=== PATIENT | female | born 1990 | race Caucasian/White ===

== ENCOUNTER → 2021-11-13 14:41 | Outpatient (CLI) | payer OTHER, SELFPAY ==
[2021-11-13 15:29] LABS: COVID19 -Nasal RAPID Negative (Negative)
== END ==
PROVIDERS: PCP Physician Assistant; Visit Provider Obstetrics & Gynecology
DX: Z01.812 Encounter for preprocedural laboratory examination (principal); Z20.822 Contact with and (suspected) exposure to COVID-19
CPT/HCPCS: 87635

== ENCOUNTER 2021-11-14 08:27 | Day surgery (SDC) | payer OTHER, SELFPAY ==
[2021-11-05 08:11] VITALS: BMI 44.3
[2021-11-14] VITALS (7 sets, daily range): BP systolic 115–145; BP diastolic 53–79; PULSE 61–77; RESP 12–16; TEMP 36.2; O2SAT 94–100; BMI 43.3
--- NOTE | 2021-11-14 | PATH_ITS ---
[facility] Accession Number: [id number] . 01 Material submitted: . endometrium - ENDOMETRIAL CURETTINGS . 01 Diagnosis: Endometrial Curettings: Portions of disordered proliferative endometrium; negative for glandular hyperplasia, cytologic atypia, or malignancy. Some endometrial fragments demonstrate prominent vessels, suggestive of polyp, if clinical and imaging studies are concordant. V 11/18/2021 1117 Local . 01 Electronically signed: . Kimberly Leung MD, Pathologist NPI- [id number] . 01 Gross description: . Received in formalin, labeled with the patient's name and endometrial curettings, and consists of multiple tsang to red-brown soft tissue fragments aggregating to 3.5 x 3.5 x 0.4 cm. The specimen is filtered into biopsy bags and submitted entirely in cassettes A1-A2. ([id number]) /[facility] 11/15/2021 1325 Local . 01 Pathologist provided ICD-10: N93.9 . 01 CPT . 334448 Performed at: 01 [facility] [address] [place] [address] [address], [place], [place] [id number] MD Caleb Ordaz MD Phone: [phone]
[2021-11-14] MEDS: LACTATED RINGERS 1,000 ML 100 ML IV (08:58)
--- NOTE | 2021-11-14 09:11 | PM.HP.1 ---
History of Present Illness History of Present Illness Date Patient Seen: 11/14/21 Time Patient Seen: 09:11 Chief complaint: SDC Narrative: Patient is a 31-year-old 0 with abnormal uterine bleeding here for a D&C hysteroscopy with polypectomy Patient History Medical History (Updated 09/18/21 @ 18:06 by Lillian Granados) Abnormal uterine bleeding (~2020) Depression (~2018) History of cold sores (~1988) Lichen planopilaris (~2020) Surgical History (Updated 09/18/21 @ 18:06 by Lillian Granados) History of dacryocystorhinostomy (~2016) History of dental surgery (~2008) Family & Social History Family History (Updated 09/18/21 @ 18:08 by Lillian Granados) Father History of heart disease Mother Mental health problem Grandfather Cancer Mesothelioma Grandmother History of heart disease Grandfather History of heart disease Grandmother History of heart disease Social History: household members none Tobacco & Substance use: Smoking Status Never smoker alcohol intake current alcohol intake frequency holiday/special occasion Substance Use Type does not use Meds Home Medications and Allergies Home Medications Medication Instructions Recorded Confirmed Type clobetasol 0.05 % topical gel 1 applic topical BID 09/03/21 11/05/21 History doxycycline monohydrate 100 mg 100 mg PO BID 09/03/21 11/05/21 History capsule Allergies Allergy/AdvReac Type Severity Reaction Status Date / Time No Known Drug Allergies Allergy Verified 11/14/21 08:46 Exam Vital Signs (past 8 hours): - 11/14/21 08:55 Temperature 97.1 F L Pulse Rate 67 Respiratory Rate 16 Blood Pressure 145/75 H Pulse Oximetry 100 Oxygen Delivery Method Room Air Oxygen Delivery Method Room Air Narrative Exam Narrative: HEENT: No thyromegaly, no anterior cervical or supraclavicular lymphadenopathy. Lungs:Clear to auscultation bilaterally, no wheezes. Cardiovascular: Regular rate and rhythm, no murmurs, rubs, or gallops. Abdomen: No scars. No hepatosplenomegaly. No masses palpable. External genitalia: Normal Vagina: Normal Cervix: Normal Bimanual exam: 7 Week size anteverted uterus. Mobile. Extremities: No edema Assessment & Plan Assessment & Plan narrative: Assessment: 31-year-old 0 with abnormal uterine bleeding and an endometrial polyp Plan: D&C hysteroscopy with polypectomy The risks, benefits, and alternatives to the procedure were explained to the patient. The risks including bleeding, infection, and uterine perforation. She understands these risks and agrees to proceed. A full par Q was held and consent form was signed. COVID-19 COVID-19 status: Negative Result date/Date tested (Pos, Neg/Pending): 11/13/21 Time Spent With Patient Time with patient: less than 30 minutes Critical Care time: I spent a total of [] minutes of critical care time on this patient's care today; this time is exclusive of procedural time.
--- NOTE | 2021-11-14 09:16 | PM.PREOP ---
Pre-operative Note COVID-19 COVID-19 status: Negative Result date/Date tested (Pos, Neg/Pending): 11/13/21 Criteria for continued procedure: Non-surgical alternatives not available or appropriate per current SOC Interval Note History & Physical reviewed/Exam performed by Physician: Yes Changes to H&P: No H&P completed within 30 days and has changed as indicated here:: 11/14/21
[2021-11-14] MEDS: ACETAMINOPHEN 325 MG TABLET 975 MG PO (09:59)
--- NOTE | 2021-11-14 10:52 | SUR.OPER ---
Lithotomy on padded OR bed, head on pillow, arms secured on padded arm boards at <90 degrees abduction. Legs secured in padded yellow fins stirrups. Patient voided in preop op area prior to entering OR.
[2021-11-14] MEDS: OXYCODONE IR 5 MG TABLET PO (11:39)
--- NOTE | 2021-11-14 11:44 | SUR.PHASEI ---
Pt A&Ox4, reports cramping as tolerable, denies any nausea, VSS and ready to transfer to phase 2. Report given to GABINO Rowley using SBAR with time allowed for questions. Will transfer care now.
--- NOTE | 2021-11-15 00:57 | PM.GYNOP.1 ---
Operative Date/Time/Diagnoses Date of procedure: 11/14/21 Time of procedure: 11:30 Pre-op diagnosis: Abnormal uterine bleeding Post-op diagnosis: same Procedure & Clinicians Procedure: Procedures Operation Date: 11/14/21 09:45 Actual Procedure Side Surgeon p D&C Hysteroscopy Venessa Alegre MD Indications: Abnormal uterine bleeding Endometrial polyp Surgeon: Venessa Alegre Anesthesia Type: General (LMA) Operative Notes Findings: 10 week size anteverted uterus Very thickened uterine lining throughout with abnormal looking vasculature and tissue Neither fallopian tube ostia could be observed Closure Type: not applicable Specimen(s): endometrial curettings Estimated blood loss (mL): 10 Blood products transfused: none Procedure in detail: After informed consent was obtained, the patient was taken to the operating room where she was placed in the dorsal supine position. After adequate LMA general anesthesia was achieved, she was placed in the dorsal lithotomy position, and prepped and draped in the usual sterile fashion. A time-out was performed. A bivalve speculum was placed into the vagina and the anterior lip of the cervix was grasped with a single-tooth tenaculum. The cervical os was sequentially dilated until the hysteroscope could pass easily into the endometrial cavity. Initial inspection with the hysteroscope revealed a large amount of tissue that appeared abnormal and thickened in the endometrial lining. The fallopian tube ostia could not be observed. The hysteroscope was removed. Polyp forceps were used to remove a large amount of tissue in the endocervical and endometrial canal. The hysteroscope again passed easily into the endometrial cavity. The fallopian tube ostia could still not be observed. There was still a large amount of abnormal appearing tissue in the endometrial canal. The hysteroscope was removed. Sharp curettage was performed yielding a large amount of endometrial curettings. The hysteroscope was passed a third time and still the fallopian tube ostia could not be observed due to the thickened tissue. The hysteroscope was removed. The single-tooth tenaculum was removed from the anterior lip of the cervix. The bivalve speculum was removed from the vagina. Sponge, lap, and instrument counts were correct x2. Patient tolerated the procedure well, and was taken to PACU in stable condition. Complications: none Post-operative Condition: stable Disposition: PACU Plan for aftercare: Home after recovery
== END 2021-11-14 12:07 | disposition home or self-care (01) ==
PROVIDERS: PCP Physician Assistant; Referring Provider Obstetrics & Gynecology; Visit Provider Obstetrics & Gynecology
PROC: 0U5B8ZZ Destruction of Endometrium, Via Natural or Artificial Opening Endoscopic (ICD-10-PCS; CPT 58563; principal; 2021-11-14 09:45)
DX: N84.0 Polyp of corpus uteri (principal); F32.A Depression, unspecified; L66.1 Lichen planopilaris
CPT/HCPCS: 58558; 81025; J1100; J1885; J2250; J2405; J2704; J3010